=== PATIENT | female | born 1960 | race Asian ===

== ENCOUNTER → 2024-05-30 | Emergency (ER) | payer MEDICAID ==
[~2024-05-30] VITALS: Ht 157.5 cm; Wt 59.1 kg
[~2024-05-30] MED LIST: ALLO-97 PO; AMLO-258 PO; ASCO500 PO; CEPH-558 PO; CHOL400T14 PO; DAPA5TAB PO; GARL600T2 PO; HYDR50TA36 PO; LABE100T51 PO; LORA10TA7 PO; LOSA-382 PO; MELA5TAB40 PO; OMEG-102 PO; ROSU20TA98 PO; SULF-261 PO; VITA180C2 PO; [UNRECOGNIZED DRUG - CODE] PO
[2024-05-30 16:32] VITALS: TEMP 97.8
[2024-05-30] MEDS: ACETAMINOPHEN 500 MG TABLET PO ONE (18:46)
[2024-05-30] MEDS: SULFAMETHOX/TRIMETH DS 800-160 MG/TABLET PO ONE (19:35)
[2024-05-30] MEDS: CEPHALEXIN MONOHYDRATE 500 MG CAPSULE PO ONE (19:35)
[2024-05-30 19:39] VITALS: BP 145/79; PULSE 69; RESP 16; O2SAT 98
== END | disposition home or self-care (01) ==
LOC: EMS 16:26
DX: L03.116 Cellulitis of left lower limb (principal); E78.00 Pure hypercholesterolemia, unspecified; I10 Essential (primary) hypertension; M10.9 Gout, unspecified; Z79.84 Long term (current) use of oral hypoglycemic drugs; Z79.899 Other long term (current) drug therapy; Z86.12 Personal history of poliomyelitis
CPT/HCPCS: 93971; 99284